=== PATIENT | female | born 1975 | race Caucasian/White ===

== ENCOUNTER 2018-01-20 19:37 | Emergency (ER) | payer MEDICAID ==
[~2018-01-20 19:37] MED LIST: AMOX875T PO; HYDR-3533 PO; VALA1TAB PO
== END 2018-01-20 20:45 | disposition left against medical advice (07) ==
LOC: NED 19:37
DX: M79.605 Pain in left leg (principal)
CPT/HCPCS: 99281

== ENCOUNTER 2018-01-25 03:29 | Emergency (ER) | payer MEDICAID ==
[~2018-01-25] VITALS: Ht 160 cm; Wt 72.0 kg
[2018-01-25 03:41] VITALS: BP 155/87; PULSE 87; RESP 18; TEMP 97.6; O2SAT 100
[2018-01-25] MEDS ORDERED: IBUPROFEN 600 MG TAB PO ONE (04:00)
--- NOTE | 2018-01-25 04:03 | PD ---
HPI Chief Complaint: Hip Injury Time Seen by Provider: 03:52 Travel History International Travel<30 days: No Contact w/Intl Traveler<30days: No Traveled to known affect area: No History of Present Illness HPI 43 yo F complains of pain in the left hip. It has been painful for about 10 days. She reports a long [address] was the event leading to the pain. She denies trauma. No falls. For the past 2 days she has been unable to walk due to the pain. She denies fever. She reports that more than 10 years prior she experienced a hip dislocation. [facility] Past Medical History Medical History: Denies Significant Hx Diabetes: No Diminished Hearing: No Immune Disorder: No Shingles: Yes Tetanus Vaccination: < 5 Years Influenza Vaccination: No ?: Not LMP: 01/10/2018 Past Surgical History Section: Yes Other Surgery: Yes (breast surgery) Social History Alcohol Use: Yes (OCCASSIONAL) Tobacco Use: No Substance Use: No Allergies-Medications (Allergen,Severity, Reaction): Coded Allergies: aspirin (Unverified Allergy, Severe, EYES SWELLING, 01/25/18) Reported Meds & Prescriptions Reported Meds & Active Scripts Active Ibuprofen 600 Mg Tab 600 Mg PO Q8HR PRN 10 Days Amoxicillin 875 Mg Tab 875 Mg PO BID 10 Days Lortab 5 mg/325 mg (Hydrocodone/Acetaminophen 5 mg/325 mg) 1 Tab 1 Tab PO Q6H PRN Valacyclovir Hcl (Valacyclovir HCl) 1 Gm Tab 1 Gm PO Q8HR 7 Days Review of Systems Except as stated in HPI: all other systems reviewed are Neg General / Constitutional: No: Fever Physical Exam Narrative GENERAL: 43-year-old female pleasant well-nourished well-developed mild distress Vital Signs Date Time Temp Pulse Resp B/P (MAP) Pulse Ox O2 Delivery O2 Flow Rate FiO2 01/25/18 03:41 97.6 87 18 155/87 (109) 100 SKIN: Warm and dry. HEAD: Atraumatic. Normocephalic. EYES: Pupils equal and round. No scleral icterus. No injection or drainage. ENT: No nasal bleeding or discharge. Mucous membranes pink and moist. NECK: Trachea midline. No JVD. CARDIOVASCULAR: Regular rate and rhythm. RESPIRATORY: No accessory muscle use. Clear to auscultation. Breath sounds equal bilaterally. GASTROINTESTINAL: Abdomen soft, non-tender, nondistended. Hepatic and splenic margins not palpable. MUSCULOSKELETAL: Extremities without clubbing, cyanosis, or edema. No obvious deformities. There is no significant tenderness overlying the greater trochanter on either side. There is no shortening of either lower extremity. The patient can elevate the right leg above the bed however not the left. Ankle flexion extension is normal. NEUROLOGICAL: Awake and alert. No obvious cranial nerve deficits. Motor grossly within normal limits. Five out of 5 muscle strength in the arms and legs. Normal speech. PSYCHIATRIC: Appropriate mood and affect; insight and judgment normal. Data Data Last Documented VS Orders Orders Hip, Uni(Ap&Lat) W Ap Pelvis (01/25/18 03:56) Ibuprofen (Motrin) (01/25/18 04:00) Ed Discharge Order (01/25/18 04:21) [facility] Medical Decision Making Medical Screen Exam Complete: Yes Emergency Medical Condition: Yes Medical Record Reviewed: Yes Differential Diagnosis Arthritis, dislocation, fracture Narrative Course Plain film of the pelvis and left hip reveals left greater than right degenerative joint disease. The patient will be discharge home. Follow-up with orthopedics. 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 Diagnosis Primary Impression: Hip pain Qualified Codes: M25.552 - Pain in left hip Additional Impression: Degenerative joint disease (DJD) of hip Qualified Codes: M16.12 - Unilateral primary osteoarthritis, left hip Referrals: Antonio Gerardo MD call for appointment Med/Other Pt SpecificInfo: Prescription(s) given Scripts Ibuprofen (Ibuprofen) 600 Mg Tab 600 MG PO Q8HR Y for PAIN for 10 Days, TAB 0 Refills Prov: Doroteo Zuniga MD 01/25/18 Disposition: 01 DISCHARGE HOME Condition: Stable Doroteo Zuniga MD January 25, 2018 04:03
[2018-01-25] MEDS ORDERED: IBUP-232 PO (04:21)
--- NOTE | 2018-01-25 04:28 | RADRPT ---
EXAM DATE/TIME: 01/25/2018 04:07 [place] COMPARISON: No previous studies available for comparison. INDICATIONS : Left hip pain. MEDICAL HISTORY : Previous left hip dislocation SURGICAL HISTORY : None. ENCOUNTER: Initial ACUITY: 1 day PAIN SCORE: 7/10 LOCATION: Left pelvis FINDINGS: AP and frog-leg lateral views of the left hip were obtained as well as an AP view of the pelvis. Ther e is mild superior joint space narrowing and sclerosis with no definite spurring. There is no acute f racture malalignment. Soft tissues are unremarkable. CONCLUSION: Minimal degenerative change in the left hip. Aditya Murcia MD on January 25, 2018 at 4:26 Board Certified Radiologist. This report was verified electronically.
== END 2018-01-25 04:51 | disposition home or self-care (01) ==
LOC: NEPE 03:29
DX: M25.552 Pain in left hip (principal); M16.12 Unilateral primary osteoarthritis, left hip
CPT/HCPCS: 73502; 99283